=== PATIENT | female | born 1945 | race Caucasian/White ===

== ENCOUNTER 2023-07-04 07:14 | Day surgery (SDC) | payer MEDICARE, SELFPAY ==
--- NOTE | 2023-07-01 11:45 | HO.ANESPROP2 ---
Documented by User: Micaela Talamantes NP 07/01/23 11:46 HPI - Anesthesia Eval Consult details Narrative: 77yo F for Colonoscopy PMFSH Past Medical History Medical History History of ETT Osteoporosis Lung nodule Mitral valve prolapse Hyperlipidemia Hx of ovarian cancer HTN (hypertension) Surgical History Surgical History History of lumpectomy of both breasts History of total abdominal hysterectomy H/O colonoscopy Social History Social History Patient Tobacco Use Status: Never used Tobacco Use of substances other than those prescribed or required for medical reasons: Yes Substance Use Frequency: Occasionally Are you DNR?: No Advance Directives: No Advance Directives Information Provided: Yes Meds Allergies Allergy/AdvReac Type Severity Reaction Status Date / Time codeine Allergy Unknown Verified 07/01/23 11:18 Home Medications ?Medication ?Instructions ?Recorded ?Confirmed ?Last Taken ?Type CoQ-10 07/01/23 Unknown History Vitamin D (with calcium) 07/01/23 Unknown History ascorbic acid (vitamin C) 1,000 mg 1,000 mg PO DAILY 07/01/23 07/01/23 Unknown History tablet (Vitamin C) hawthorn 07/01/23 07/01/23 Unknown History multivitamin 1 tab PO DAILY 07/01/23 07/01/23 Unknown History rosuvastatin 10 mg tablet 10 mg PO BEDTIME 07/01/23 07/01/23 Unknown History vitamin B complex 1 tab PO DAILY 07/01/23 07/01/23 Unknown History vitamin E 07/01/23 Unknown History vitamin K2 07/01/23 Unknown History Assessment and Plan Assessment Anesthesia Assessment: Chart Reviewed Documented by User: Meri Dorsey MD 07/04/23 08:22 PMFSH Past Medical History Medical History History of ETT Osteoporosis Lung nodule Mitral valve prolapse Hyperlipidemia Hx of ovarian cancer HTN (hypertension) Surgical History Surgical History History of lumpectomy of both breasts History of total abdominal hysterectomy H/O colonoscopy History of Problems with Anesthesia: No Social History Social History Patient Tobacco Use Status: Never used Tobacco Use of substances other than those prescribed or required for medical reasons: Yes Substance Use Frequency: Occasionally Are you DNR?: No Advance Directives: No Advance Directives Information Provided: Yes Meds Allergies Allergy/AdvReac Type Severity Reaction Status Date / Time codeine Allergy Unknown Verified 07/01/23 11:18 Home Medications ?Medication ?Instructions ?Recorded ?Confirmed ?Last Taken ?Type CoQ-10 07/01/23 Unknown History Vitamin D (with calcium) 07/01/23 Unknown History ascorbic acid (vitamin C) 1,000 mg 1,000 mg PO DAILY 07/01/23 07/01/23 Unknown History tablet (Vitamin C) hawthorn 07/01/23 07/01/23 Unknown History multivitamin 1 tab PO DAILY 07/01/23 07/01/23 Unknown History rosuvastatin 10 mg tablet 10 mg PO BEDTIME 07/01/23 07/01/23 Unknown History vitamin B complex 1 tab PO DAILY 07/01/23 07/01/23 Unknown History vitamin E 07/01/23 Unknown History vitamin K2 07/01/23 Unknown History Exam Airway Mallampati Class: II TM Dist: >3cm Neck ROM: Full Loose/Missing/Broken Teeth: No Heart: RRR Lungs: CTA Assessment and Plan Assessment Anesthesia Assessment: Anesthesia Plan Discussed Final Anesthetic Review History of Problems with Anesthesia: No NPO: Yes ASA Class: II Final Preanesthetic Review: Meds/Allgs Chart Reviewed, Consent Obtained/Reviewed and Anes Risks/Benef Reviewed Patient Risk: Low Procedure Risk: Low Anesthetic Plan Anesthetic Plan: MAC: Disposition: Standard PACU
[2023-07-04 07:22] VITALS: BMI 24.7
[2023-07-04 07:41] VITALS: BP 138/68; PULSE 82; RESP 16; TEMP 36.3; O2SAT 98
[2023-07-04] MEDS: Lactated Ringers 1,000 ML 100 ML IVCONT (07:42)
--- NOTE | 2023-07-04 09:32 | P.BOP_ITS ---
Brief Operative Note Date of Service: 07/04/23 Pre-op diagnosis: Screening Post-op diagnosis: other (Colon polyps) Procedure: [id number] to the cecum with hot snare polypectomy x 2 in the cecum with placement of 1 Resolution clip Surgeon: Josue Kline MD Anesthesia: MAC Was an Guest Services Manager used for this Procedure?: No Estimated blood loss (mL): 2.0 Pathology: other (A. Cecal polyps) Condition: stable Disposition: PACU
[2023-07-04 09:33] VITALS: BP 121/63; PULSE 87; RESP 16; TEMP 36.1; O2SAT 95
[2023-07-04 09:48] VITALS: BP 116/66; PULSE 83; RESP 16; O2SAT 100
[2023-07-04 10:01] VITALS: BP 136/63; PULSE 68; RESP 16; TEMP 36.1; O2SAT 99
--- NOTE | 2023-07-04 10:07 | OP_ITS ---
DATE OF SERVICE: 07/04/2023 SURGEON: Josue Kline MD INDICATIONS: The patient presents for followup of colorectal cancer screening and personal history of tubular adenoma of the colon. Full consent has been obtained from her for this, including risks of bleeding and perforation. PREOPERATIVE DIAGNOSIS: POSTOPERATIVE DIAGNOSIS: PROCEDURE PERFORMED: ESTIMATED BLOOD LOSS: COMPLICATIONS: ANESTHESIA: Monitored anesthesia care. ASSISTANTS: SPECIMENS: PREOPERATIVE DIAGNOSES: Colorectal cancer screening and personal history of tubular adenoma of the colon. POSTOPERATIVE DIAGNOSES: Colorectal cancer screening, personal history of tubular adenoma of the colon, colon polyps, diverticulosis, and internal hemorrhoids. PROCEDURES PERFORMED: Colonoscopy to the cecum with hot snare polypectomy x2, and placement of 1 Resolution clip. DESCRIPTION OF PROCEDURE: The patient was placed in the left lateral decubitus position. The digital rectal exam revealed no abnormalities. The [employer] video pediatric colonoscope was then entered into the rectum and advanced to the cecum with the assistance of abdominal wall pressure. Once in the cecum, I did identify cecal pouch with appendiceal orifice and a normal-appearing ileocecal valve. In the cecum, were 2 approximately 10 mm polyps. These were both removed by hot snare polypectomy and recovered by suction. One of the polypectomy site had some persistent oozing, which was cauterized with the tip of the snare and then a single Resolution clip was applied with good deployment and good hemostasis. The other polypectomy site appeared clean, without any sign of residual polyp nor bleeding as well. The scope was then slowly withdrawn, assessing all mucosal surfaces carefully. Preparation was excellent. I did not visualize any other polyps, colitis, nor angiodysplasia. There was a moderate amount of sigmoid diverticulosis. In the rectum, scope was retroflexed, visualizing small internal hemorrhoids, but no other pathology. The rectal mucosa appeared normal. Scope was straightened and withdrawn from the patient. She tolerated the procedure well and was returned to the recovery area in stable condition. IMPRESSION: 1. Colon polyps. 2. Diverticulosis. 3. Internal hemorrhoids. PLAN: Given these findings and her age, I do not think she will need any further screening colonoscopies. She was advised not to use any aspirin and NSAIDs for 1 week. She will, otherwise, see me on a p.r.n. basis. MD NURIA Keen/YENY / [phone]
== END 2023-07-04 10:47 | disposition home or self-care (01) ==
PROVIDERS: PCP Internal Medicine; Visit Provider Internal Medicine
PROC: 0DJD8ZZ Inspection of Lower Intestinal Tract, Via Natural or Artificial Opening Endoscopic (ICD-10-PCS; CPT 45378; principal; 2023-07-04 08:30)
DX: Z12.11 Encounter for screening for malignant neoplasm of colon (principal); D12.0 Benign neoplasm of cecum; K57.30 Diverticulosis of large intestine without perforation or abscess without bleeding; K64.8 Other hemorrhoids; Z86.010 Personal history of colon polyps; I10 Essential (primary) hypertension
CPT/HCPCS: 45385; 88305; J1920; J2704; J3010